=== PATIENT | male | born 1970 | race Caucasian/White ===

== ENCOUNTER 2018-03-01 06:23 | Day surgery (SDC) | payer BC ==
[~2018-03-01 06:23] MED LIST: ACETAMINOPHEN 1,000 MG/100 ML BTL IV ONE; CEFAZOLIN 2 Gram 2 GM/50 ML BAG IVPB ONE
[2018-03-01] MEDS ORDERED: ONDANSETRON HCL IV 4 MG/2 ML VIAL IVP ONE (06:24)
[2018-03-01] MEDS ORDERED: MIDAZOLAM HCL 2MG/2ML VIAL IV ONE (06:24)
[2018-03-01] MEDS ORDERED: BUPIVACAINE 0.25% W/EPI MPF 30ML VIAL IVP ONE (06:24)
[2018-03-01] MEDS ORDERED: KETOROLAC 30 MG/ML VIAL IVP ONE (06:24)
[2018-03-01] MEDS ORDERED: DEXAMETHASONE 4 MG/ML 1ML VIAL IVP ONE (06:24)
[2018-03-01] MEDS ORDERED: ROPIVACAINE HCL (NAROPIN) /PF 5MG/ML 20ML VIAL IV ONE (06:24)
[2018-03-01] MEDS ORDERED: SEVOFLURANE 250 ML INH ONE (06:24)
[2018-03-01] MEDS ORDERED: FENTANYL PF 100MCG/2ML VIAL IV ONE (06:24)
[2018-03-01] MEDS ORDERED: PROPOFOL 10 MG/ML VIAL IV ONE (06:24)
[2018-03-01] MEDS ORDERED: HYDROCODONE/APAP 5/325MG TABLET PO ONE (06:24)
[2018-03-01] MEDS ORDERED: LIDOCAINE 2% MDV (20MG/ML) 20ML VIAL IV ONE (06:24)
--- NOTE | 2018-03-01 16:30 | Operative Note ---
DATE OF SURGERY: 03/01/2018 Surgeon: Alfonso Strange DO PREOPERATIVE DIAGNOSIS: Reducible right inguinal hernia. POSTOPERATIVE DIAGNOSIS: Reducible right inguinal hernia, indirect. OPERATION: Open right inguinal herniorrhaphy with mesh. Indication: The patient is a 48-year-old male who presented with pain and bulging in his right inguinal region. We did discuss repair. Risks, benefits, and alternatives were discussed. Risks include bleeding, infection, acute or chronic pain, recurrence. He understood this fully. Thereafter, consent was signed and questions answered. PROCEDURE: The patient was taken to the operating room and placed in a supine position. General anesthesia was administered per the department of anesthesia. The patient's right inguinal region was shaved of hair and prepped and draped in the usual fashion. A timeout was performed. He did receive preoperative antibiotic. The identify was confirmed. He was blocked preoperatively per department of anesthesia. At this time, the oblique region was anesthetized with a total of 4 mL of 0.25% Sensorcaine with epinephrine. A 4 cm oblique incision was made. This was carried down to the subcutaneous tissues, through the Jason layer to the aponeurosis of the external oblique. This was cleaned off. A hima was made with a scalpel blade and enlarged to the superficial inguinal ring with Metzenbaum scissors. Care was taken not to injure the underlying ilioinguinal nerve. Superior and inferior flaps were developed and a Melody was placed on the spermatic cord. This was dissected free from the underlying transversalis fascia and retracted laterally with a Kayleen drain. The floor was inspected and noted to be free of any direct herniation. Cremasteric fibers were taken down. There was a moderate size cord lipoma as well as indirect hernia sac. High ligations of each were done. Right-sided ProGrip mesh was obtained. This was placed in the floor of the inguinal canal with excellent overlap of the pubic tubercle. The stitches went at the level of the pubic tubercle, second portion of the inguinal ligament, internal oblique, aponeurosis. The lateral triangle was protected with the lateral aspect of the mesh. At this time, the aponeurosis was closed over the cord with 2-0 Vicryl. Jason layer was closed with 3-0 Vicryl. The skin was closed with a 4-0 Vicryl. The patient was taken to the recovery room in satisfactory condition. FINDINGS AT THE TIME OF SURGERY: Right inguinal hernia, indirect, repaired as above. CC: Aung CHANEY
== END 2018-03-01 10:10 | disposition home or self-care (01) ==
LOC: SUR 06:23
PROVIDERS: ATTEND Surgery
DX: K40.90 Unilateral inguinal hernia, without obstruction or gangrene, not specified as recurrent (principal); I10 Essential (primary) hypertension
CPT/HCPCS: 49505; 00830; 64486; J1885; J2405; J3010; J0690; J2795; 76942